=== PATIENT | female | born 1930 | race Caucasian/White ===

== ENCOUNTER 2018-07-03 20:27 | Inpatient (IN) ==
[2018-07-03] MEDS ORDERED: Ibuprofen 400 MG TABLET PO ONE (20:54)
--- NOTE | 2018-07-03 21:18 | Emergency Department Note ---
Disposition Clinical Impression: Difficulty walking Left shoulder pain Qualifiers: Chronicity: acute Qualified Code(s): M25.512 - Pain in left shoulder Proximal humeral fracture Qualifiers: Encounter type: initial encounter Fracture type: closed Fracture morphology: other fracture Fracture alignment: displaced Laterality: left Qualified Code(s): S42.292A - Other displaced fracture of upper end of left humerus, initial encounter for closed fracture Right knee pain Qualifiers: Chronicity: acute Qualified Code(s): M25.561 - Pain in right knee Right patella fracture Qualifiers: Encounter type: initial encounter Fracture type: closed Fracture morphology: comminuted Fracture alignment: nondisplaced Qualified Code(s): S82.044A - Nondisplaced comminuted fracture of right patella, initial encounter for closed fracture Disposition: Admitted As Inpatient Condition: Good Time of Disposition: 23:02 Fall HPI - General Chief Complaint: ED Extremity Injury, Upper Stated Complaint: Fall L Arm Injury Time Seen by Provider: 07/03/18 20:47 Source: patient, family Nursing Notes Reviewed: Yes Vital Signs Reviewed: Yes - History of Present Illness Pt Subjective Complaint: fall Onset (ago): Just [employer] Fall From: standing Fall Witnessed: yes Place Fall Occurred: home Loss of Consciousness: none Prolonged Down Time?: no Symptoms Prior to Fall: none Context: tripped/slipped (on garden fencing) Location of injury - extremities: Left: shoulder, knee Associated symptoms (after fall): Denies: headache, neck pain, numbness, weakness, chest pain, shortness of breath, abdominal pain, unable to walk, lightheaded - Related Data Home Medications Medication Instructions Recorded Confirmed Albuterol Sulfate [Albuterol 2 puff IH Q4H PRN 01/27/18 01/27/18 Inhaler] Alendronate Sodium [Fosamax] 70 mg PO WE 01/27/18 01/27/18 Calcium Carbonate/Vitamin D3 1 each PO DAILY 01/27/18 01/27/18 [Calcium 600-Vit D3 400 Tablet] Cholecalciferol (D-3) [Vitamin D] 2,000 unit PO DAILY 01/27/18 01/27/18 Docusate Sodium [Stool Softener] 200 mg PO DAILY PRN 01/27/18 01/27/18 Folic Acid 3.2 mg PO DAILY 01/27/18 01/27/18 Ibuprofen [Advil] 400 mg PO DAILY PRN 01/27/18 01/27/18 Levothyroxine [Synthroid] 100 mcg PO DAILY 01/27/18 01/27/18 Methotrexate [Otrexup] 20 mg PO MO 01/27/18 01/27/18 Omeprazole [PriLOSEC] 20 mg PO DAILY 01/27/18 01/27/18 Tiotropium [Spiriva] 18 mcg IH DAILY 01/27/18 01/27/18 predniSONE [PredniSONE] 5 mg PO DAILY 01/27/18 01/27/18 Previous Rx's Medication Instructions Recorded HYDROcodone/Acet 5/325 mg [[place] 1 tab PO Q6H PRN 5 Days #20 tab 01/27/18 5-325 mg] Allergies Allergy/AdvReac Type Severity Reaction Status Date / Time No Known Allergies Allergy Verified 01/27/18 10:10 All systems ED: reviewed and negative except as stated. Review of Systems: As Per HPI Constitutional: Denies: fever, chills Eyes: Denies: vision change ENT ED: Denies: throat pain Cardiovascular: Denies: chest pain, palpitations Respiratory: Denies: dyspnea Gastrointestinal: Denies: abdominal pain, nausea, vomiting Genitourinary: Denies: dysuria Musculoskeletal: Reports: as per HPI. Denies: back pain, neck pain Integumentary: Denies: rash Neurological: Denies: headache Endocrine: Denies: fatigue Hematological/Lymphatic: Denies: easy bleeding Allergic/Immunologic: Denies: facial swelling Fall PMH - Past Medical History Medical history: Reports: arthritis, thyroid disease Psychiatric history: Reports: no psych history - Social History Smoking Status: Former smoker Alcohol use: Reports: none Drug use: Reports: none Physical Exam - General Limitations: no limitations General appearance: alert, in no apparent distress - Head Head exam: normocephalic - Eye Eye exam: Present: EOMI - ENT ENT exam: normal oropharynx, mucous membranes moist - Neck Neck exam: Present: full ROM. Absent: lymphadenopathy - Chest Chest inspection: Present: normal inspection, symmetric chest wall rise - Respiratory Respiratory exam: Present: normal lung sounds bilaterally. Absent: respiratory distress, wheezes, stridor, accessory muscle use - Cardiovascular Cardiovascular exam: Present: regular rate, normal rhythm - Abdominal Exam Abdominal exam: Present: soft, Non-Tender - Expanded Upper Extremity Exam Shoulder exam: Present: tenderness (left). Absent: full ROM (left limited due to pain), swelling, abrasion Arm exam: Present: full ROM, tenderness (left) Elbow exam: Present: full ROM, abrasion (left). Absent: tenderness, swelling Forearm/Wrist exam: Present: abrasion (left). Absent: tenderness over anatomi [place] snuff box Hand exam: Present: full ROM, deformity (Bilateral chronic-appearing consistent with rheumatoid arthritis) Neuromotor exam: Normal: wrist extension, thumb opposition, thumb IP flexion, thumb adduction, fingers 2-5 abduction Neurosensory exam: Normal: 2-point discrimination Hand tendon exam: Normal: flexor digitorum profundus (location), flexor digitorum superficialis (location), extensor tendon (location) Vascular exam: Normal: capillary refill, radial pulse - Expanded Lower Extremity Exam Knee exam: Present: full ROM, tenderness (right), abrasion (bilateral), knee extension intact. Absent: ecchymosis, effusion, posterior draw sign, pain with valgus, laxity with valgus, pain with varus, laxity with varus Lower leg exam: Present: normal inspection, full ROM. Absent: tenderness Ankle exam: Present: normal inspection, full ROM. Absent: tenderness Foot/toe exam: Present: full ROM. Absent: tenderness Neurovascular/Tendon exam: Present: normal capillary refill. Absent: pulse deficit, motor deficit, sensory deficit, tendon deficit Gait: observed and normal - Back Exam Back exam: Present: normal inspection, full ROM. Absent: tenderness, CVA t enderness (R), CVA tenderness (L) - Neurological Exam Neurological exam: Present: alert, oriented X3 - Psychiatric Psychiatric exam: Present: normal affect, normal mood - Skin Skin exam: Present: warm, dry, intact, normal color. Absent: rash, cyanosis, diaphoresis Course Course Narrative: Patient is a 88-year-old female arrives to her exam room by wheelchair by private vehicle with reported mechanical fall. Patient describes tripping over some gardening fencing and falling onto her knees and her left upper extremity. Fall was witnessed, no reported prolonged downtime, musical symptoms or loss of consciousness. She is accompanied by her daughter, he states that patient is acting normally. No reported recent illness, anticoagulant use. Patient's vitals within normal limits. Patient seen and examined. patient is alert and oriented 3 no acute distress. Lungs clear to auscultation. No cervical tenderness. No vertebral back tenderness. Good distal pulses. Mild abrasion possible laceration to her left wrist which remains bandaged. We will reevaluate after x-rays. Triage orders were placed for bilateral knee x-rays, left elbow. On my examination, patient has mild tenderness to her right knee, no tenderness to her left knee. No elbow tenderness, demonstrates good flexion and sanction of her left elbow. She does have tenderness over her proximal humerus and shoulder with limited range of motion of her left shoulder. I do feel she is a left shoulder, left humerus anteriorly rate knee x-rays are appropriate. Patient is requesting ibuprofen for her analgesics, states that she uses this at home otherwise denies any other issues. - Reevaluation(s) Reevaluation #1: X-rays reviewed by myself and by radiologist. Evidence for acute comminuted impacted surgical neck fracture, with inferior displacement. As well as suspected patellar fracture with possible lipohemarthrosis. We will plan for ortho consult consult. On reexamination, patient has mild abrasion to the flexor surface of her left wrist, hand anterior right knee. No active bleeding, evidence of debris or foreign body or infection. Patient's tetanus is up-to-date. Attempted to ambulate patient, she was unable to stand on her own, and after assistance to her feet, was unable to bear weight on her right knee. Time: 22:25 Reevaluation #2: Patient discussed and accepted by hospitalist, who also requested basic lab work, as well as EKG PT/INR if needed for possible surgery. Time: 22:57 - Consultations Consultation #1: Patient discussed with on-call orthopedic physician Dr. Krause, who advised patient would need admission for placement and agree to review xrays and see patient in the morning. Time: 22:33 Consultation #2: Discussed with Dr. Krause who reviewed xrays and did advise for CT of shoulder and knee. Time: 22:45 Vital Signs Temperature 97.4 F L 07/03/18 20:34 Pulse Rate 59 07/03/18 20:34 Respiratory Rate 20 07/03/18 20:34 Blood Pressure 119/82 07/03/18 20:34 O2 Sat by Pulse Oximetry 99 07/03/18 20:34 Temperature 97.4 F L 07/03/18 20:34 Pulse Rate 55 07/04/18 00:32 Respiratory Rate 18 07/04/18 00:32 Blood Pressure 108/75 07/04/18 00:32 O2 Sat by Pulse Oximetry 97 07/04/18 00:32 Oxygen Delivery Oxygen Delivery Room Air Fall - [facility] Narrative Medical decision making narrative: Patient discussed with attending Dr. Maldoando who agreed to see patient. Patient presented with the mechanical fall, x-rays of the left shoulder and right knee were concerning for comminuted proximal humerus fracture, and possible right patella fracture. Patient does live alone, has no support at this time. Patient was discussed with on-call orthopedics who did advise for admission for placement, and agreed to see patient. They have also agreed with CT for further evaluation. Patient has mild abrasions related to her fall otherwise is a c losed fracture with no neurovascular deficits. Patient remained alert and oriented in her vitals within normal limits. She declined analgesics, but had taken a dose of her home with Motrin here. Patient was accepted by the hospitalist for admission for possible placement and/or the consult. Humerus X-Ray 07/03/18 20:40 IMPRESSION: Left humerus and left shoulder: Comminuted, impacted surgical neck fracture. There is inferior displacement of the humeral head relative the glenoid, which is likely secondary to hemarthrosis (i.e., a pseudo dislocation). Further characterization of the fracture with CT may be helpful. At that time, the inferior displacement of the humeral head could also be better characterized. Right knee: Suspected patellar fracture, seen only on the frontal radiograph. Consider further evaluation with CT to confirm that. D/ / Michael Vincent MD / Michael Vincent MD Interpreting Provider: Michael Vincent MD Knee X-Ray 07/03/18 20:40 IMPRESSION: Left humerus and left shoulder: Comminuted, impacted surgical neck fracture. There is inferior displacement of the humeral head relative the glenoid, which is likely secondary to hemarthrosis (i.e., a pseudo dislocation). Further characterization of the fracture with CT may be helpful. At that time, the inferior displacement of the humeral head could also be better characterized. Right knee: Suspected patellar fracture, seen only on the frontal radiograph. Consider further evaluation with CT to confirm that. D/ / Michael Vincent MD / Michael Vincent MD Interpreting Provider: Michael Vincent MD Shoulder X-Ray 07/03/18 20:40 IMPRESSION: Left humerus and left shoulder: Comminuted, impacted surgical neck fracture. There is inferior displacement of the humeral head relative the glenoid, which is likely secondary to hemarthrosis (i.e., a pseudo dislocation). Further characterization of the fracture with CT may be helpful. At that time, the inferior displacement of the humeral head could also be better characterized. Right knee: Suspected patellar fracture, seen only on the frontal radiograph. Consider further evaluation with CT to confirm that. D/ / Michael Vincent MD / Michael Vincent MD Interpreting Provider: Michael Vincent MD Knee CT 07/03/18 22:46 IMPRESSION: Comminuted fracture involving the lateral aspect of the patella, with mild articular step-off of the lateral patellar facet. D/ / Michael Vincent MD / Michael Vincent MD Interpreting Provider: Michael Vincent MD Shoulder CT 07/03/18 22:46 IMPRESSION: Highly comminuted fracture of the left humeral surgical neck, with extension into the greater and lesser tuberosities. Evidence of hemarthrosis as well as blood products within the subacromial/subdeltoid space, explaining the inferior displacement of the humeral head on the radiographs. No dislocation is found. D/ / Michael Vincent MD / Michael Vincent MD Interpreting Provider: Michael Vincent MD - Lab Data Lab results reviewed: Yes I reviewed the patient's lab results. Result diagrams: 07/04/18 00:08 07/04/18 00:08 Lab Results 07/04/18 07/04/18 07/04/18 Range/Units 00:08 00:08 00:08 WBC 12.7 H (4.3-11.1) K/mcL RBC 3.89 (3.82-4.97) M/mcL Hgb 12.5 (11.5-15.4) g/dL Hct 38.3 (35.3-44.9) % MCV 98.5 (83.0-100.0) fL MCH 32.1 (28.0-33.3) pg MCHC 32.6 (31.6-35.5) g/dL RDW 13.2 (11.5-14.5) % Plt Count 276 (140-400) K/mcL MPV 9.6 (9.4-12.4) fL Immature Gran % 0.3 (0-4) % Seg Neutrophils % 82.7 % Lymphocytes % 7.3 % Monocytes % 9.1 % Eosinophils % 0.4 % Basophils % 0.2 % Neutrophils # 10.5 H (1.6-8.9) K/mcL Lymphocytes # 0.9 (0.6-4.6) K/mcL Monocytes # 1.2 (0.0-1.3) K/mcL Eosinophils # 0.1 (0.0-0.6) K/mcL Basophils # 0.0 (0.0-0.2) K/mcL PT 11.5 (9.4-12.1) Seconds INR 1.0 APTT 29.7 (26.0-36.0) Seconds Sodium 137 (136-145) mEq/L Potassium 3.8 (3.5-5.1) mEq/L Chloride 105 (98-107) mEq/L Carbon Dioxide 23 (23-29) mEq/L BUN 19 (8-23) mg/dL Creatinine 0.77 (0.60-1.20) mg/dL Est GFR ( Amer) > 60 (> 60) Est GFR (Non-Af Amer) > 60 (> 60) BUN/Creatinine Ratio 25 (6-26) Glucose 134 H (70-105) mg/dL Calculated Osmolality 288 (280-300) Calcium 9.3 (8.6-10.3) mg/dL - Radiology Data Radiology results reviewed: Yes I reviewed the patient's radiology results. - EKG Data EKG attestation: Yes I reviewed and interpreted this EKG. EKG shows normal: sinus rhythm Rate: normal Rhythm: NSR When compared to previous EKG there are: previous EKG unavailable Interpretation: no acute changes
--- NOTE | 2018-07-03 22:55 | Emergency Department Note ---
Disposition Referrals: Paige Fan MD [Primary Care Provider] - General Adult HPI - General Chief complaint: ED Extremity Injury, Upper Stated complaint: Fall L Arm Injury Time Seen by Provider: 07/03/18 20:47 Source: patient, family Limitations: no limitations - History of Present Illness Pain Scale: 4 - Related Data Home Medications Medication Instructions Recorded Confirmed Albuterol Sulfate [Albuterol 2 puff IH Q4H PRN 01/27/18 01/27/18 Inhaler] Alendronate Sodium [Fosamax] 70 mg PO WE 01/27/18 01/27/18 Calcium Carbonate/Vitamin D3 1 each PO DAILY 01/27/18 01/27/18 [Calcium 600-Vit D3 400 Tablet] Cholecalciferol (D-3) [Vitamin D] 2,000 unit PO DAILY 01/27/18 01/27/18 Docusate Sodium [Stool Softener] 200 mg PO DAILY PRN 01/27/18 01/27/18 Folic Acid 3.2 mg PO DAILY 01/27/18 01/27/18 Ibuprofen [Advil] 400 mg PO DAILY PRN 01/27/18 01/27/18 Levothyroxine [Synthroid] 100 mcg PO DAILY 01/27/18 01/27/18 Methotrexate [Otrexup] 20 mg PO MO 01/27/18 01/27/18 Omeprazole [PriLOSEC] 20 mg PO DAILY 01/27/18 01/27/18 Tiotropium [Spiriva] 18 mcg IH DAILY 01/27/18 01/27/18 predniSONE [PredniSONE] 5 mg PO DAILY 01/27/18 01/27/18 Previous Rx's Medication Instructions Recorded HYDROcodone/Acet 5/325 mg [[place] 1 tab PO Q6H PRN 5 Days #20 tab 01/27/18 5-325 mg] Allergies Allergy/AdvReac Type Severity Reaction Status Date / Time No Known Allergies Allergy Verified 01/27/18 10:10 Constitutional: Denies: fever, chills Eyes: Denies: vision change ENT ED: Denies: throat pain Cardiovascular: Denies: chest pain, palpitations Respiratory: Denies: dyspnea Gastrointestinal: Denies: abdominal pain, nausea, vomiting Genitourinary: Denies: dysuria Musculoskeletal: Reports: as per HPI. Denies: back pain, neck pain Integumentary: Denies: rash Neurological: Denies: headache Endocrine: Denies: fatigue Hematological/Lymphatic: Denies: easy bleeding Allergic/Immunologic: Denies: facial swelling Past Medical History - Past Medical History Medical history: Reports: arthritis, thyroid disease Psychiatric history: Reports: no psych history - Social History Smoking Status: Former smoker Smokeless Tobacco Status: No Alcohol use: Reports: none Drug use: Reports: none Physical Exam - General Limitations: no limitations General appearance: alert, in no apparent distress Course Vital Signs Temperature 97.4 F L 07/03/18 20:34 Pulse Rate 59 07/03/18 20:34 Respiratory Rate 20 07/03/18 20:34 Blood Pressure 119/82 07/03/18 20:34 O2 Sat by Pulse Oximetry 99 07/03/18 20:34 Temperature 97.4 F L 07/03/18 20:34 Pulse Rate 59 07/03/18 20:34 Respiratory Rate 20 07/03/18 20:34 Blood Pressure 119/82 07/03/18 20:34 O2 Sat by Pulse Oximetry 99 07/03/18 20:34 Oxygen Delivery Oxygen Delivery Room Air Attestation Statement - Attestation Attestation: I examined this patient and my medical decision-making was reviewed with the Resident Physician. I agree with the documented findings, disposition and treatment plan as described except to the extent set forth below. Proximal humerus fracture, neuro intact, possible patellar fracture. Will be admitted for pain control and for assistance with activities of daily living pending rehabilitation or surgical intervention.
[2018-07-03] MEDS ORDERED: Acetaminophen 325 MG TABLET PO PRN (23:10)
[2018-07-03] MEDS ORDERED: Naloxone 0.4 MG/ML INJ IVP PRN (23:10)
--- NOTE | 2018-07-03 23:15 | Internal Med History&Physical ---
Date of Encounter: 07/04/18 Time of Encounter: 23:15 Internal Medicine - H&P: HPI Chief complaint: Fall Admitted From: Emergency Dept Plans for Post Hospital Care: Home History of present illness: Ms. Masterson is a 88 year old female with history of rheumatoid arthritis an d hypothyroidism who presented after she had sustained a fall after tripping on her "mini fence" and landed on her face. No prodromal symptoms and no loss of consciousness. She sustained a few abrasions to her left elbow and right knee and was in significant pain and was brought to the ED by her family members. In the ED she was noted stable. She underwent imaging studies including x-ray of the left shoulder/humerus and right knee. These showed possible left comminuted, impacted surgical neck fracture of the humerus/older. The right knee x-ray showed possible patellar fracture. Dr. Gregg from the orthopedic service was contacted by the ED and recommended obtaining CTs of those areas. At the time of this dictation I do not have any results of the CTs. The patient did not have any labs ordered by the ED and I have asked for those to be done including PT/INR as well as an EKG case of any surgical needs. Patient is fairly active. She mows her on lawn. She has steps abdomen dressed her home when she climbs those with no issues. No chest pain or shortness of breath. No history of heart disease. Patient denies any headache, blurry vision, dizziness, chest pain, shortness breath, abdominal pain, diarrhea, constipation, urinary symptoms, or neurological symptoms. Past Med Surg Social Fam HX - Past Medical History Medical history: arthritis, thyroid disease Psychiatric history: no psych history - Social History Smoking Status: Former smoker Smokeless Tobacco Status: No Alcohol use: none Drug use: none Internal Medicine - H&P: Meds Albuterol Sulfate [Albuterol Inhaler] 2 puff IH Q4H PRN 01/27/18 [History] Calcium Carbonate/Vitamin D3 [Calcium 600-Vit D3 400 Tablet] 1 each PO DAILY 01/27/18 [History] Cholecalciferol (D-3) [Vitamin D] 2,000 unit PO DAILY 01/27/18 [History] Folic Acid 3.2 mg PO DAILY 01/27/18 [History] Ibuprofen [Advil] 400 mg PO DAILY PRN 01/27/18 [History] Levothyroxine [Synthroid] 100 mcg PO DAILY 01/27/18 [History] Methotrexate [Otrexup] 20 mg PO MO 01/27/18 [History] Tiotropium [Spiriva] 18 mcg IH DAILY 01/27/18 [History] predniSONE [PredniSONE] 5 mg PO DAILY 01/27/18 [History] Allergy/AdvReac Type Severity Reaction Status Date / Time No Known Allergies Allergy Verified 01/27/18 10:10 All Systems PM: A 10-system review of systems was performed and is negative for pertinent f indings except as documented above in the HPI. Review of systems: All systems reviewed are negative except for as mentioned above - Constitutional Vitals: Temp Pulse Resp BP Pulse Ox 97.4 F L 59 20 119/82 99 07/03/18 20:34 07/03/18 20:34 07/03/18 20:34 07/03/18 20:34 07/03/18 20:34 Exam: GEN: NAD HEENT: AT, NC, No cyanosis, oral mucosa is moist, No JVD Lymphatics: No lymphadenoapthy Eyes: Extrocular muscles intact, anicteric CVS:RRR. S1, S2, No m/r/g RESP: CTAB ABD: Soft, NT, ND, +BS EXT: No edema, right knee and left elbow abrasions noted, 2+ DP. Patient is unable to lift her left upper extremity beyond 20-30 degrees. She is able to bend her right knee but with significant pain. NEURO: Nonfocal, CN II-XII intact, No focal motor or sensory deficits Psych: Cooperative, Not anxious or depressed Internal Med - H&P Results - Labs CBC & Chem 7: 07/04/18 00:08 07/04/18 00:08 - Impressions ITS Impressions Humerus X-Ray 07/03/18 20:40 IMPRESSION: Left humerus and left shoulder: Comminuted, impacted surgical neck fracture. There is inferior displacement of the humeral head relative the glenoid, which is likely secondary to hemarthrosis (i.e., a pseudo dislocation). Further characterization of the fracture with CT may be helpful. At that time, the inferior displacement of the humeral head could also be better characterized. Right knee: Suspected patellar fracture, seen only on the frontal radiograph. Consider further evaluation with CT to confirm that. D/ / Michael Vincent MD / Michael Vincent MD Interpreting Provider: Michael Vincent MD Knee X-Ray 07/03/18 20:40 IMPRESSION: Left humerus and left shoulder: Comminuted, impacted surgical neck fracture. There is inferior displacement of the humeral head relative the glenoid, which is likely secondary to hemarthrosis (i.e., a pseudo dislocation). Further characterization of the fracture with CT may be helpful. At that time, the inferior displacement of the humeral head could also be better characterized. Right knee: Suspected patellar fracture, seen only on the frontal radiograph. Consider further evaluation with CT to confirm that. D/ / Michael Vincent MD / Michael Vincent MD Interpreting Provider: Michael Vincent MD Shoulder X-Ray 07/03/18 20:40 IMPRESSION: Left humerus and left shoulder: Comminuted, impacted surgical neck fracture. There is inferior displacement of the humeral head relative the glenoid, which is likely secondary to hemarthrosis (i.e., a pseudo dislocation). Further characterization of the fracture with CT may be helpful. At that time, the inferior displacement of the humeral head could also be better characterized. Right knee: Suspected patellar fracture, seen only on the frontal radiograph. Consider further evaluation with CT to confirm that. D/ / Michael Vincent MD / Michael Vincent MD Interpreting Provider: Michael Vincent MD - Assessment and plan (1) Right patella fracture Current Visit: Yes Status: Acute Assessment and plan: We will follow-up on the CT results. We will admit the patient and have orthopedics see the patient tomorrow morning. NPO after midnight. EKG and labs for preoperative clearance if the patient is to go to the OR. Pain control. Most laboratory workup and EKG are unremarkable patient can be cleared for surgery without any further cardiac testing needed. Consult PTOT. Qualifiers: Encounter type: initial encounter Fracture type: closed Fracture morphology: comminuted Fracture alignment: nondisplaced Qualified Code(s): S82.044A - Nondisplaced comminuted fracture of right patella, initial encounter for closed fracture (2) Proximal humeral fracture Current Visit: Yes Status: Acute Assessment and plan: Plan as above Qualifiers: Encounter type: initial encounter Fracture type: closed Fracture morphology: other fracture Fracture alignment: displaced Laterality: left Qualified Code(s): S42.292A - Other displaced fracture of upper end of left humerus, initial encounter for closed fracture (3) Rheumatoid arthritis Current Visit: Yes Status: Acute Assessment and plan: Resume home meds Qualifiers: Rheumatoid arthritis location: unspecified site Rheumatoid factor presence: unspecified presence Qualified Code(s): M06.9 - Rheumatoid arthritis, unspecified (4) Hypothyroidism Current Visit: Yes Status: Acute Assessment and plan: Resume levothyroxine Qualifiers: Hypothyroidism type: unspecified Qualified Code(s): E03.9 - Hypothyroidism, unspecified (5) DVT prophylaxis Current Visit: Yes Status: Acute Assessment and plan: Heparin subcutaneous - Time Spent With Patient Total time spent is greater than 50% in coordination of care (as documented) at patient's floor/unit and/or counseling patient:
[2018-07-04 00:26] LABS: Basophils % 0.2 %; Eosinophils # 0.1 K/mcL (0.0-0.6); Eosinophils % 0.4 %; Hematocrit 38.3 % (35.3-44.9); Hemoglobin 12.5 g/dL (11.5-15.4); Immature Granulocytes % 0.3 % (0-4); Lymphocytes # 0.9 K/mcL (0.6-4.6); Lymphocytes % 7.3 %; Mean Corpuscular HGB Conc 32.6 g/dL (31.6-35.5); Mean Corpuscular Hemoglobin 32.1 pg (28.0-33.3); Mean Corpuscular Volume 98.5 fL (83.0-100.0); Mean Platelet Volume 9.6 fL (9.4-12.4); Monocytes # 1.2 K/mcL (0.0-1.3); Monocytes % 9.1 %; Neutrophils # 10.5 K/mcL (1.6-8.9); Platelet Count 276 K/mcL (140-400); Red Blood Count 3.89 M/mcL (3.82-4.97); Red Cell Distribution Width 13.2 % (11.5-14.5); Segmented Neutrophils % 82.7 %
[2018-07-04 00:30] LABS: Prothrombin Time 11.5 Seconds (9.4-12.1)
[2018-07-04 00:32] LABS: Activated Partial Thrombo Time 29.7 Seconds (26.0-36.0)
[2018-07-04 00:39] LABS: BUN/Creatinine Ratio 25 (6-26); Blood Urea Nitrogen 19 mg/dL (8-23); Calcium 9.3 mg/dL (8.6-10.3); Carbon Dioxide 23 mEq/L (23-29); Chloride 105 mEq/L (98-107); Glucose 134 mg/dL (70-105); Osmolality,Calculated 288 (280-300); Potassium 3.8 mEq/L (3.5-5.1); Sodium 137 mEq/L (136-145); eGFR For Non-African Americans > 60 (> 60)
[2018-07-04] MEDS: *HR* Heparin 5,000 UNIT/ML VIAL SQ SCH ×3 (05:32→22:04)
[2018-07-04 06:35] LABS: Basophils % 0.2 %; Eosinophils # 0.1 K/mcL (0.0-0.6); Eosinophils % 1.3 %; Hematocrit 34.3 % (35.3-44.9); Hemoglobin 11.5 g/dL (11.5-15.4); Immature Granulocytes % 0.3 % (0-4); Lymphocytes # 1.3 K/mcL (0.6-4.6); Lymphocytes % 12.1 %; Mean Corpuscular HGB Conc 33.5 g/dL (31.6-35.5); Mean Corpuscular Hemoglobin 33.1 pg (28.0-33.3); Mean Corpuscular Volume 98.8 fL (83.0-100.0); Mean Platelet Volume 9.8 fL (9.4-12.4); Monocytes # 1.1 K/mcL (0.0-1.3); Monocytes % 10.4 %; Neutrophils # 8.4 K/mcL (1.6-8.9); Platelet Count 249 K/mcL (140-400); Red Blood Count 3.47 M/mcL (3.82-4.97); Red Cell Distribution Width 13.2 % (11.5-14.5); Segmented Neutrophils % 75.7 %
[2018-07-04 06:38] LABS: BUN/Creatinine Ratio 27 (6-26); Blood Urea Nitrogen 19 mg/dL (8-23); Calcium 8.9 mg/dL (8.6-10.3); Carbon Dioxide 26 mEq/L (23-29); Chloride 107 mEq/L (98-107); Glucose 110 mg/dL (70-105); Magnesium 2.1 mg/dL (1.6-2.6); Osmolality,Calculated 293 (280-300); Potassium 3.7 mEq/L (3.5-5.1); Sodium 140 mEq/L (136-145); eGFR For Non-African Americans > 60 (> 60)
[2018-07-04] MEDS: Tiotropium 18 MCG inhalation IH SCH (07:50)
[2018-07-04] MEDS ORDERED: D5% in Water 1,000 ML IVC PRN (09:00)
[2018-07-04] MEDS ORDERED: Dextrose Gel 15 GM/37.5 ML TUBE PO PRN ×2 (09:00)
[2018-07-04] MEDS ORDERED: D5% in 0.45% NACL 1,000 ML IVC SCH (09:00)
[2018-07-04] MEDS ORDERED: *HR* Dextrose 50 % in Water (Syg) 50 ML SYRINGE IVP PRN (09:00)
--- NOTE | 2018-07-04 09:03 | Internal Med Progress Note ---
Hospitalist Progress Note - Encounter Date of Encounter: 07/04/18 Time of Encounter: 09:01 - Subjective Interval History: I have seen and evaluated this patient at bedside. Patient reports decreased range of motion of the right lower extremity due to the right knee pain. Denies chest pain, shortness of breath, nausea, or vomiting. - Exam Vitals: Temp Pulse Resp BP Pulse Ox 98.3 F 65 16 93/57 98 07/04/18 06:59 07/04/18 06:59 07/04/18 07:50 07/04/18 07:50 07/04/18 07:50 Exam: Vitals: Reviewed General: Alert and oriented 4. In mild distress due to right knee pain, and left shoulder pain. Skin: Normal color, no rash, no lesions. HEENT: EOM, pupils equal, round and reactive. Cardiovascular: RRR, Normal S1 & S2, no rubs, murmurs or gallops. Lungs: Clear to auscultation bilaterally, no wheezes or crackles. Abdomen: Soft, non-tender, no rigidity. Extremities: Tenderness to touch and edema on the right knee. Decrease range of motion in the left upper extremity. Neurological: Normal cognition and motor skills. Rest of the physical exam is non contributory - Assessment and Plan (1) Right patella fracture Current Visit: Yes Status: Acute Assessment and Plan: CT/CT knee RT wo con IMPRESSION: Comminuted fracture involving the lateral aspect of the patella, with mild articular step-off of the lateral patellar facet. Plan Nothing by mouth D5/0.45% NS @50mls/hr for maintenance fluid to avoid hypoglycemia Accu checks every 6 hours Lispro medium dose sliding scale every 6 hours. Pain control with Theodore 5-325mg 1 tablet by mouth every 6 hours when necessary Orthoplast been consulted. (2) Proximal humeral fracture Current Visit: Yes Status: Acute Assessment and Plan: Plan of care as above. (3) Rheumatoid arthritis Current Visit: Yes Status: Chronic Assessment and Plan: With non-acute flare. Continue prednisone 5 mg by mouth daily Methotrexate 20 mg by mouth daily Folic acid 3 mg by mouth daily. (4) Hypothyroidism Current Visit: Yes Status: Chronic Assessment and Plan: Continue levothyroxine 50 100 mcg/PO daily DVT Prophylaxis: On heparin 5000 units subcutaneous every 8 hours - Summary of Assessment and Plan Summary of Assessment and Plan: Patient to remain in the hospital due to right patellar fracture. Pending orthopedic team evaluation. - Time Spent with Patient Total time spent is greater than 50% in coordination of care (as documented) at patient's floor/unit and/or counseling patient: Greater than 35 minutes (45) Plan of Care Discussed with: patient (On the nurse) Internal Medicine: Result - Labs CBC & Chem 7: 07/04/18 05:56 07/04/18 05:56 Labs: Short CBC 07/04/18 07/04/18 Range/Units 00:08 05:56 WBC 12.7 H 11.0 (4.3-11.1) K/mcL Hgb 12.5 11.5 (11.5-15.4) g/dL Hct 38.3 34.3 L (35.3-44.9) % Plt Count 276 249 (140-400) K/mcL Neutrophils # 10.5 H 8.4 (1.6-8.9) K/mcL BMP 07/04/18 07/04/18 00:08 05:56 Sodium 137 140 Potassium 3.8 3.7 Chloride 105 107 Carbon Dioxide 23 26 BUN 19 19 Creatinine 0.77 0.70 Glucose 134 H 110 H Calcium 9.3 8.9 - ABG Interpretation ABG results: PT/INR, D-dimer PT 11.5 Seconds (9.4-12.1) 07/04/18 00:08 - Impressions Impressions Humerus X-Ray 07/03/18 20:40 IMPRESSION: Left humerus and left shoulder: Comminuted, impacted surgical neck fracture. There is inferior displacement of the humeral head relative the glenoid, which is likely secondary to hemarthrosis (i.e., a pseudo dislocation). Further characterization of the fracture with CT may be helpful. At that time, the inferior displacement of the humeral head could also be better characterized. Right knee: Suspected patellar fracture, seen only on the frontal radiograph. Consider further evaluation with CT to confirm that. D/ / Michael Vincent MD / Michael Vincent MD Interpreting Provider: Michael Vincent MD Knee X-Ray 07/03/18 20:40 IMPRESSION: Left humerus and left shoulder: Comminuted, impacted surgical neck fracture. There is inferior displacement of the humeral head relative the glenoid, which is likely secondary to hemarthrosis (i.e., a pseudo dislocation). Further characterization of the fracture with CT may be helpful. At that time, the inferior displacement of the humeral head could also be better characterized. Right knee: Suspected patellar fracture, seen only on the frontal radiograph. Consider further evaluation with CT to confirm that. D/ / Michael Vincent MD / Michael Vincent MD Interpreting Provider: Michael Vincent MD Shoulder X-Ray 07/03/18 20:40 IMPRESSION: Left humerus and left shoulder: Comminuted, impacted surgical neck fracture. There is inferior displacement of the humeral head relative the glenoid, which is likely secondary to hemarthrosis (i.e., a pseudo dislocation). Further characterization of the fracture with CT may be helpful. At that time, the inferior displacement of the humeral head could also be better characterized. Right knee: Suspected patellar fracture, seen only on the frontal radiograph. Consider further evaluation with CT to confirm that. D/ / Michael Vincent MD / Michael Vincent MD Interpreting Provider: Michael Vincent MD Knee CT 07/03/18 22:46 IMPRESSION: Comminuted fracture involving the lateral aspect of the patella, with mild articular step-off of the lateral patellar facet. D/ / Michael Vincent MD / Michael Vincent MD Interpreting Provider: Michael Vincent MD Shoulder CT 07/03/18 22:46 IMPRESSION: Highly comminuted fracture of the left humeral surgical neck, with extension into the greater and lesser tuberosities. Evidence of hemarthrosis as well as blood products within the subacromial/subdeltoid space, explaining the inferior displacement of the humeral head on the radiographs. No dislocation is found. D/ / Michael Vincent MD / Michael iVncent MD Interpreting Provider: Michael Vincent MD Consult Discharge Plan - Plan (1) Right patella fracture Qualifiers: Encounter type: initial encounter Fracture type: closed Fracture morphology: comminuted Fracture alignment: nondisplaced Qualified Code(s): S82.044A - Nondisplaced comminuted fracture of right patella, initial encounter for closed fracture (2) Proximal humeral fracture Qualifiers: Encounter type: initial encounter Fracture type: closed Fracture morphology: other fracture Fracture alignment: displaced Laterality: left Qualified Code(s): S42.292A - Other displaced fracture of upper end of left humerus, initial encounter for closed fracture (3) Rheumatoid arthritis Qualifiers: Rheumatoid arthritis location: unspecified site Rheumatoid factor presence: unspecified presence Qualified Code(s): M06.9 - Rheumatoid arthritis, unspecified (4) Hypothyroidism Qualifiers: Hypothyroidism type: unspecified Qualified Code(s): E03.9 - Hypothyroidism, unspecified
[2018-07-04] MEDS: Cholecalciferol (D-3) 1,000 UNIT TABLET PO SCH (09:10)
[2018-07-04] MEDS: predniSONE 5 MG TABLET PO SCH (09:10)
[2018-07-04] MEDS: Folic Acid 1 MG TABLET PO SCH (09:10)
[2018-07-04] MEDS: *HR* HYDROcodone/Acet 5/325 mg TABLET PO PRN ×2 (10:43→16:48)
--- NOTE | 2018-07-04 11:31 | Orthopedic Consult Note ---
Date of Encounter: 07/04/18 Time of Encounter: 11:29 Assessment and Plan (1) Proximal humeral fracture Current Visit: Yes Status: Acute I did discuss the diagnosis with the patient and family. She has essentially nondisplaced fractures of the left proximal humerus and right patella. Given the patient's age my recommendation is for nonoperative management of both injuries. I do feel that if she heals these fractures in the current position that she will have an excellent outcome. I did recommend sling immobilization of the left upper extremity followed by careful radiographic follow-up and I anticipate beginning pendulum swings at around 3 week lawrence depending on symptoms and radiographs. Regarding the right lower extremity I do recommend a knee immobilizer and weightbearing as tolerated. The immobilizer needs to be on at all times. I did offer aspiration versus however the patient declines saying that she does not like needles and that there is no significant pain at this time. The arthrosis will resolve on its own however it will take several weeks to even a couple of months. I did discuss inpatient rehabilitation however the patient declines saying that she has a lot of help at home. I anticipate at least home with home health and home PT. We will consult to physical therapist for an evaluation and I anticipate discharge either today or tomorrow depending on when she can be seen by PT and house. I do recommend discharge on an adult aspirin twice a day for DVT prophylaxis. I will see her back on 07/13/18 for repeat clinical and radiographic reevaluation or sooner if needed. Qualifiers: Encounter type: initial encounter Fracture type: closed Fracture morphology: other fracture Fracture alignment: displaced Laterality: left Qualified Code(s): S42.292A - Other displaced fracture of upper end of left humerus, initial encounter for closed fracture (2) Right patella fracture Current Visit: Yes Status: Acute Qualifiers: Encounter type: initial encounter Fracture type: closed Fracture morphology: comminuted Fracture alignment: nondisplaced Qualified Code(s): S82.044A - Nondisplaced comminuted fracture of right patella, initial encounter for closed fracture History of Present Illness HPI: Ms. Masterson is a 88 year old female who sustained a fall late last night and was found to have a right patella fracture and a left proximal humerus fracture. Due to concerns from the emergency department about her discharge she was admitted to the hospitalist for placement. She complains of isolated pain to the left shoulder and the right knee. Pain is sharp and achy and worse with movement and use and better with rest. It is well controlled with the pain medication she is getting here. No numbness, tingling, or any other associated signs or symptoms or modifying factors. At baseline she is an unassisted community ambulator who lives alone but does have family close by. She denies any other injuries. She denies any other associated signs or symptoms or modifying factors. Past Med Surg Social Fam HX - Past Medical History Medical history: arthritis, thyroid disease Psychiatric history: no psych history - Past Surgical History Surgical History: cholecystectomy, hysterectomy, thyroidectomy - Social History Smoking Status: Former smoker Smokeless Tobacco Status: No Alcohol use: none Drug use: none - Family History Mother Living Status: Age at : 37 Cause of : tuberculosis Father Living Status: Age at : 86 Hx Family Cardiac Disorders: Yes (htn) Medications and Allergies Albuterol Sulfate [Albuterol Inhaler] 2 puff IH Q4H PRN 01/27/18 [History] Calcium Carbonate/Vitamin D3 [Calcium 600-Vit D3 400 Tablet] 1 each PO DAILY 01/27/18 [History] Cholecalciferol (D-3) [Vitamin D] 2,000 unit PO DAILY 01/27/18 [History] Folic Acid 3.2 mg PO DAILY 01/27/18 [History] Ibuprofen [Advil] 400 mg PO DAILY PRN 01/27/18 [History] Levothyroxine [Synthroid] 100 mcg PO DAILY 01/27/18 [History] Methotrexate [Otrexup] 20 mg PO MO 01/27/18 [History] Tiotropium [Spiriva] 18 mcg IH DAILY 01/27/18 [History] predniSONE [PredniSONE] 5 mg PO DAILY 01/27/18 [History] Allergy/AdvReac Type Severity Reaction Status Date / Time No Known Allergies Allergy Verified 01/27/18 10:10 All Systems Reviewed: Constitutional and musculoskeletal systems were reviewed and are negative unless otherwise stated in history of present illness. Physical Exam - Constitutional Vitals: Temp Pulse Resp BP Pulse Ox 98.5 F 60 16 138/70 97 07/04/18 10:41 07/04/18 10:41 07/04/18 10:41 07/04/18 10:41 07/04/18 10:41 Constitutional -Vitals reviewed -The patient is well developed and well nourished. -Mood is pleasant. -The patient is well groomed. Psychiatric -The patient is fully alert and oriented x 3. Respiratory: -Respiratory effort normal Abdomen: -Soft abdomen -Non tender -Non distended: Left upper extremity: -Tenderness to palpation over the anterior shoulder swelling and ecchymosis -No significant pain with passive motion of the elbow, wrist, and fingers within the limits of the bed. -Able to make an "OK" sign, cross the index and long fingers, and extend the thumb. -Sensation grossly intact to light touch throughout the median, radial, and ulnar distributions. -Radial pulse is present; Fingers have good capillary refill. Right upper extremity: -No deformities. The overlying skin is intact. No obvious signs of acute trauma. -No tenderness to palpation throughout. -No significant pain with passive motion of the shoulder, elbow, wrist, and fingers within the limits of the bed. -Able to make an "OK" sign, cross the index and long fingers, and extend the thumb. -Sensation grossly intact to light touch throughout the median, radial, and ulnar distributions. -Radial pulse is present; Fingers have good capillary refill. Left lower extremity: -No deformities. The overlying skin is intact. No obvious signs of acute trau ma. -No tenderness to palpation throughout. -No pain with passive motion of the hip, knee, ankle, and toes within the limits of the bed. -No pain with axial loading of the thigh. -Able to dorsiflex and plantarflex the ankle and toes. -Sensation is grossly intact to light touch throughout the sural, saphenous, superficial peroneal, and deep peroneal distributions. -Toes have good capillary refill. Right lower extremity: -Swelling to the knee and palpable effusion consistent with hemarthrosis -Tenderness about the right knee; the knee was not ranged due to her known injury. -No pain with passive motion of the hip, ankle, and toes within the limits of the bed. -No pain with axial loading of the thigh. -Able to dorsiflex and plantarflex the ankle and toes. -Sensation is grossly intact to light touch throughout the sural, saphenous, superficial peroneal, and deep peroneal distributions. -Toes have good capillary refill. Diagnostic Imaging: I did personally review and interpret x-rays of the left humerus and shoulder and right knee suggestive of nondisplaced fractures of the left proximal humerus and right knee. CT scan of the shoulder confirms that there is no dislocation and that the fracture fragments are well aligned. The right knee CT scan confirms a mainly sagittal plane patella fracture with minimal step-off. Results - Labs Result Diagrams: 07/04/18 05:56 07/04/18 05:56 Labs: Abnormal lab results RBC 3.47 M/mcL (3.82-4.97) L 07/04/18 05:56 Hct 34.3 % (35.3-44.9) L 07/04/18 05:56 BUN/Creatinine Ratio 27 (6-26) H 07/04/18 05:56 Glucose 110 mg/dL (70-105) H 07/04/18 05:56 H & H 07/04/18 07/04/18 Range/Units 00:08 05:56 Hgb 12.5 11.5 (11.5-15.4) g/dL Hct 38.3 34.3 L (35.3-44.9) % All other labs normal. Consult Discharge Plan - Plan Referrals: Paige Fan MD [Primary Care Provider] -
[2018-07-04] MEDS ORDERED: Insulin LISPRO 300 UNITS/3 ML VIAL SQ SCH (12:00)
[2018-07-05 01:33] LABS: Bilirubin,Urine Negative (Negative); Blood,Urine Negative (Negative); Clarity,Urine Turbid (Clear); Color,Urine Dark Yellow (Yellow); Glucose,Urine (UA) Normal (Normal); Ketones,Urine Negative (Negative); Leukocyte Esterase,Urine Moderate (Negative); Nitrite,Urine Negative (Negative); PH,Urine 7.5 pH Units (5.0-8.0); Protein,Urine 30 mg/dL (Neg-Trace); Specific Gravity,Urine 1.016 (1.010-1.025); Urobilinogen,Urine Normal (Normal)
[2018-07-05 01:35] LABS: Bacteria,Urine Many per hpf (None-Few); Hyaline Casts,Urine None Seen per lpf (None-Few); Squamous Epithelial Cell,Urine Moderate per lpf (None-Few); WBC,Urine 30-50 per hpf (0-3)
[2018-07-05 03:43] LABS: Basophils % 0.2 %; Eosinophils # 0.1 K/mcL (0.0-0.6); Eosinophils % 0.6 %; Hematocrit 31.2 % (35.3-44.9); Hemoglobin 10.4 g/dL (11.5-15.4); Immature Granulocytes % 0.4 % (0-4); Lymphocytes # 1.2 K/mcL (0.6-4.6); Lymphocytes % 10.4 %; Mean Corpuscular HGB Conc 33.3 g/dL (31.6-35.5); Mean Corpuscular Hemoglobin 32.7 pg (28.0-33.3); Mean Corpuscular Volume 98.1 fL (83.0-100.0); Mean Platelet Volume 9.9 fL (9.4-12.4); Monocytes # 1.4 K/mcL (0.0-1.3); Monocytes % 12.3 %; Neutrophils # 8.6 K/mcL (1.6-8.9); Platelet Count 214 K/mcL (140-400); Red Blood Count 3.18 M/mcL (3.82-4.97); Red Cell Distribution Width 13.1 % (11.5-14.5); Segmented Neutrophils % 76.1 %
[2018-07-05 04:07] LABS: BUN/Creatinine Ratio 26 (6-26); Blood Urea Nitrogen 18 mg/dL (8-23); Calcium 8.2 mg/dL (8.6-10.3); Carbon Dioxide 21 mEq/L (23-29); Chloride 104 mEq/L (98-107); Glucose 140 mg/dL (70-105); Magnesium 1.9 mg/dL (1.6-2.6); Osmolality,Calculated 284 (280-300); Phosphorous 3.2 mg/dL (2.7-4.5); Potassium 3.8 mEq/L (3.5-5.1); Sodium 135 mEq/L (136-145); eGFR For Non-African Americans > 60 (> 60)
[2018-07-05] MEDS: *HR* HYDROcodone/Acet 5/325 mg TABLET PO PRN (06:45)
[2018-07-05] MEDS: *HR* Heparin 5,000 UNIT/ML VIAL SQ SCH (06:45)
[2018-07-05 07:41] VITALS: BP 102/49
[2018-07-05] MEDS: Tiotropium 18 MCG inhalation IH SCH (07:56)
[2018-07-05] MEDS: Cholecalciferol (D-3) 1,000 UNIT TABLET PO SCH (08:02)
[2018-07-05] MEDS: predniSONE 5 MG TABLET PO SCH (08:02)
[2018-07-05] MEDS: Folic Acid 1 MG TABLET PO SCH (08:02)
--- NOTE | 2018-07-05 08:51 | Discharge Summary ---
- NOTES TO OUTPATIENT PROVIDER Notes to Outpatient Provider: Follow-up with orthopedic team on on 07/13/18 Orders not resulted at time of discharge: Pending orders 07/03/18 22:57 ECG 12 lead ECG [ECG] Stat 07/05/18 01:20 Culture,Urine [RM] Routine Date of Encounter: 07/05/18 Time of Encounter: 08:47 - Discharge Diagnosis (1) Right patella fracture Priority: Primary Status: Acute Qualifiers: Encounter type: initial encounter Fracture type: closed Fracture morphology: comminuted Fracture alignment: nondisplaced Qualified Code(s): S82.044A - Nondisplaced comminuted fracture of right patella, initial encounter for closed fracture (2) Proximal humeral fracture Priority: Primary Status: Acute Qualifiers: Encounter type: initial encounter Fracture type: closed Fracture morphology: other fracture Fracture alignment: displaced Laterality: left Qualified Code(s): S42.292A - Other displaced fracture of upper end of left humerus, initial encounter for closed fracture (3) Rheumatoid arthritis Priority: Secondary Status: Chronic Qualifiers: Rheumatoid arthritis location: unspecified site Rheumatoid factor presence: unspecified presence Qualified Code(s): M06.9 - Rheumatoid arthritis, unspecified (4) Hypothyroidism Priority: Secondary Status: Chronic Qualifiers: Hypothyroidism type: unspecified Qualified Code(s): E03.9 - Hypothyroidism, unspecified Hospital course: Ms. Masterson is a 88 year old female PHM rheumatoid arthritis and hypothyroidism, Who sustained a fall and was found to have a right patella fracture and a left proximal humerus fracture. Patient seen by the orthopedics team, who recommended for nonoperative management of both injuries. Recommend sling immobilization of the left upper extremity followed by careful radiographic follow-up, recommend a knee immobilizer and weightbearing as tolerated. Discuss inpatient rehabilitation however the patient declines saying that she has a lot of help at home. offed aspiration of the knee but patient refused. Patient recommended to follow up with Ortho on 07/13/18. Patient hemodynamically stable, being discharged home with services. - Time Spent with Patient Total time spent providing and/or coordinating discharge services: Greater than 30 minutes (40) - Discharge Medications Prescriptions: HYDROcodone/Acet 5/325 mg [[place] 5-325 mg] 1 tab PO Q6HR PRN 5 Days #15 tablet PRN Reason: Moderate Pain Aspirin Enteric Coated [Aspirin EC] 81 mg PO BID 30 Days #60 tablet. Home Medications: Albuterol Sulfate [Albuterol Inhaler] 2 puff IH Q4H PRN 01/27/18 [History] Calcium Carbonate/Vitamin D3 [Calcium 600-Vit D3 400 Tablet] 1 each PO DAILY 01/27/18 [History] Cholecalciferol (D-3) [Vitamin D] 2,000 unit PO DAILY 01/27/18 [History] Folic Acid 3.2 mg PO DAILY 01/27/18 [History] Ibuprofen [Advil] 400 mg PO DAILY PRN 01/27/18 [History] Levothyroxine [Synthroid] 100 mcg PO DAILY 01/27/18 [History] Methotrexate [Otrexup] 20 mg PO MO 01/27/18 [History] Tiotropium [Spiriva] 18 mcg IH DAILY 01/27/18 [History] predniSONE [PredniSONE] 5 mg PO DAILY 01/27/18 [History] Aspirin Enteric Coated [Aspirin EC] 81 mg PO BID 30 Days #60 tablet. 07/05/18 [Rx] HYDROcodone/Acet 5/325 mg [[place] 5-325 mg] 1 tab PO Q6HR PRN 5 Days #15 tablet 07/05/18 [Rx] Allergies/Adverse Reactions: Allergy/AdvReac Type Severity Reaction Status Date / Time No Known Allergies Allergy Verified 01/27/18 10:10 Date of admission: 07/04/18 14:58 Primary care physician: aPige Fan Consults: 07/03/18 22:59 Consult to Orthopedic Surgery [CONS] Stat Consulting Provider: Orthoped[facility] Reason for Consult: Left humeral fracture, possible right patella fracture Call Completed: Yes 07/03/18 23:10 Consult to Occupational Therapy [CONS] Routine Comment: Evaluate, develop and implement POC Reason for Consult: therapy/placement needs Does patient have active BEDREST order?: No Is patient medically & hemodynamically stable?: Yes Consult to Physical Therapy [CONS] Routine Comment: Evaluate, develop and implement POC Reason for Consult: PT eval Does patient have active BEDREST order?: No Is patient medically & hemodynamically stable?: Yes 07/04/18 01:21 Consult to Nutrition [CONS] Routine Comment: Consulting Provider: NUTRITION Reason for Dietary Consult: MST Score - Constitutional Vitals: Temp Pulse Resp BP Pulse Ox 98.8 F 56 56 102/49 93 07/05/18 07:39 07/05/18 07:39 07/05/18 07:39 07/05/18 07:39 07/05/18 07:39 Exam: Vitals: Reviewed General: Alert and oriented 4. In no acute distress. Skin: Normal color, no rash, no lesions. Cardiovascular: RRR, Normal S1 & S2, no rubs, murmurs or gallops. Lungs: Clear to auscultation bilaterally, no wheezes or crackles. Abdomen: Soft, non-tender, no rigidity. Extremities: Tenderness to touch and edema on the right knee. Decrease range of motion in the left upper extremity. Neurological: Normal cognition and motor skills. Rest of the physical exam is non contributory - Patient Status Disposition: Home Health Service Condition: Good Functional capacity at discharge: independent ambulation Overall status at discharge: patient is progressing back to baseline - Discharge Instructions Follow Up With: Paige Fan MD [Primary Care Provider] - Forms: ED Satisfaction Letter - Diet and Activity Activity: as per physical therapy Diet: low salt diet
--- NOTE | 2018-07-05 08:57 | Physician Discharge Referral ---
Home Health/Hosp Referral Info Transfer to: Home Health - Diagnosis (1) Right patella fracture Priority: Primary Status: Acute (2) Proximal humeral fracture Priority: Secondary Status: Acute (3) Rheumatoid arthritis Priority: Secondary Status: Chronic (4) Hypothyroidism Priority: Secondary Status: Chronic - Respiratory Orders None Smoking Cessation: Smoking cessation has been advised. For more information, call the [place] Tobacco Quit Line at 0-166-LFZE-NOW. - Diet/Nutrition Diet/Nutrition Orders: Regular - Activity Activity Orders: Ambulate - Services Needed Following services are medically necessary services: Home Health Aide, Physical Therapy, Occupational Therapy - Transfer Medications Prescriptions: HYDROcodone/Acet 5/325 mg [[place] 5-325 mg] 1 tab PO Q6HR PRN 5 Days #15 tablet PRN Reason: Moderate Pain Aspirin Enteric Coated [Aspirin EC] 81 mg PO BID 30 Days #60 tablet. [place] Medications: Albuterol Sulfate [Albuterol Inhaler] 2 puff IH Q4H PRN 01/27/18 [History] Calcium Carbonate/Vitamin D3 [Calcium 600-Vit D3 400 Tablet] 1 each PO DAILY 01/27/18 [History] Cholecalciferol (D-3) [Vitamin D] 2,000 unit PO DAILY 01/27/18 [History] Folic Acid 3.2 mg PO DAILY 01/27/18 [History] Ibuprofen [Advil] 400 mg PO DAILY PRN 01/27/18 [History] Levothyroxine [Synthroid] 100 mcg PO DAILY 01/27/18 [History] Methotrexate [Otrexup] 20 mg PO MO 01/27/18 [History] Tiotropium [Spiriva] 18 mcg IH DAILY 01/27/18 [History] predniSONE [PredniSONE] 5 mg PO DAILY 01/27/18 [History] Aspirin Enteric Coated [Aspirin EC] 81 mg PO BID 30 Days #60 tablet. 07/05/18 [Rx] HYDROcodone/Acet 5/325 mg [[place] 5-325 mg] 1 tab PO Q6HR PRN 5 Days #15 tablet 07/05/18 [Rx] Allergies/Adverse Reactions: Allergy/AdvReac Type Severity Reaction Status Date / Time No Known Allergies Allergy Verified 01/27/18 10:10 Certification: Further, I certify that my clinical findings support that this patient is homebound (i.e. absences from home require considerable and taxing effort and are for medical reasons or [facility] or infrequently or short duration when for other reasons) because: Homebound Reason: Patient requires assistance of a person or device to safely leave home Attestation: My signature below is to certify that this patient is under my care and that I, or nurse practitioner, or a physician's emergency room physician assistant working with me, has a [id number] encounter with this patient.
--- NOTE | 2018-07-05 11:31 | Orthopedics Progress Note ---
Date of Encounter: 07/05/18 Time of Encounter: 11:28 - Assessment and Plan (1) Proximal humeral fracture Current Visit: Yes Status: Acute Qualifiers: Encounter type: initial encounter Fracture type: closed Fracture morphology: other fracture Fracture alignment: displaced Laterality: left Qualified Code(s): S42.292A - Other displaced fracture of upper end of left humerus, initial encounter for closed fracture (2) Right patella fracture Current Visit: Yes Status: Acute Qualifiers: Encounter type: initial encounter Fracture type: closed Fracture morphology: comminuted Fracture alignment: nondisplaced Qualified Code(s): S82.044A - Nondisplaced comminuted fracture of right patella, initial encounter for closed fracture Subjective Interval history: S: Resting in bed comfortably Pain control the left shoulder and the right knee O: Afebrile and vital signs are stable Tenderness over the left anterior shoulder. Neurovascularly intact distally. Immobilizer intact to the right knee. Neurovascularly intact distally A: Left proximal humerus fracture and right patella fracture, both nonoperative P: Continued weightbearing as tolerated on bilateral lower extremities with an immobilizer on the right knee at all times. Sling to the left upper extremity. Patient declining rehabilitation facility. Therefore, recommend home with home PT. Follow up with me on 07/13/18 for a repeat xray of the right knee and left shoulder. Objective Vital signs: Vital Signs Temp Pulse Resp BP Pulse Ox 07/05/18 07:39 98.8 F 56 56 102/49 93 07/05/18 05:50 99.7 F H 68 18 152/73 96 07/04/18 23:58 98.9 F 65 18 149/67 93 07/04/18 19:39 99.1 F 57 18 104/64 93 07/04/18 16:07 97.7 F 58 18 111/72 95 Intake and Output 07/04/18 07/05/18 07/05/18 23:59 07:59 15:59 Intake Total 0 / 0 0 / 0 Output Total 0 / 0 350 / 350 Balance 0 / 0 -350 / -350 Intake: Oral 0 / 0 0 / 0 Output: Urine 0 / 0 350 / 350 Other: Percent of Meal Consumed 40% # Voids 1 Weight 70.08 kg Blood Glucose* 177 Patient Weight 07/05/18 23:59 Weight 70.08 kg - Labs CBC & BMP: 07/05/18 03:20 07/05/18 03:20 Labs: Abnormal lab results WBC 11.3 K/mcL (4.3-11.1) H 07/05/18 03:20 RBC 3.18 M/mcL (3.82-4.97) L 07/05/18 03:20 Hgb 10.4 g/dL (11.5-15.4) L 07/05/18 03:20 Hct 31.2 % (35.3-44.9) L 07/05/18 03:20 Monocytes # 1.4 K/mcL (0.0-1.3) H 07/05/18 03:20 Sodium 135 mEq/L (136-145) L 07/05/18 03:20 Carbon Dioxide 21 mEq/L (23-29) L 07/05/18 03:20 Glucose 140 mg/dL (70-105) H 07/05/18 03:20 POC Glucose 120 mg/dL (70-99) H 07/04/18 11:30 Calcium 8.2 mg/dL (8.6-10.3) L 07/05/18 03:20 Urine Clarity Turbid (Clear) A 07/05/18 01:20 Urine Protein 30 mg/dL (Neg-Trace) H 07/05/18 01:20 Ur Leukocyte Esterase Moderate (Negative) H 07/05/18 01:20 Urine Microscopic RBC 5-15 per hpf (0-3) H 07/05/18 01:20 Urine Microscopic WBC 30-50 per hpf (0-3) H 07/05/18 01:20 Ur Squamous Epith Cells Moderate per lpf (None-Few) H 07/05/18 01:20 Urine Bacteria Many per hpf (None-Few) H 07/05/18 01:20 Ur Culture Indicated? YES (NO) A 07/05/18 01:20 Consult Discharge Plan - Plan Referrals: Paige Fan MD [Primary Care Provider] - Prescriptions: Aspirin Enteric Coated [Aspirin EC] 81 mg PO BID 30 Days #60 tablet. HYDROcodone/Acet 5/325 mg [[place] 5-325 mg] 1 tab PO Q6HR PRN 5 Days #15 tablet PRN Reason: Moderate Pain
[2018-07-06] MEDS ORDERED: *HR* Methotrexate 2.5 MG TABLET PO SCH (09:00)
--- NOTE | 2018-07-06 17:56 | Electrocardiograph Report ---
[place] [id number] Test Date: 2018-07-04 Pat Name: Cynthia Masterson Department: [id number] Room: [facility] Gender: F Motor Mechanic: : [id number] Requested By: Germain Chino Order Number: [id number] Reading MD: Karla Hurtado Measurements Intervals [place] Rate: 53 P: 121 ME: 196 QRS: 161 QRSD: 121 T: 113 QT: 475 QTc: 446 Interpretive Statements Right and left arm electrode reversal Sinus rhythm Nonspecific intraventricular conduction delay Electronically Signed On 07-06-2018 17:54:35 EST by Karla Hurtado
== END 2018-07-05 15:00 | disposition home health service (06) | DRG 563 ==
LOC: EMEROOARM 20:27 → INTOOBSV 07-04 00:35 → 3NENU 07-04 00:35 → SUATTDRO 07-04 14:58
PROVIDERS: ADMIT Internal Medicine; ATTEND Internal Medicine